=== PATIENT | male | born 1990 | race Caucasian/White ===

== ENCOUNTER → 2020-06-21 | Emergency (ER) | payer OTHER ==
[~2020-06-21] MED LIST: AMLODIPINE BESY10 M2 PO; ATORVASTATIN CA20 M1 PO; ELIQUIS5 MG PO; LOSARTAN POTAS100 M1 PO; METFORMIN500 M1 PO; METOPROLOL SUCC25 M2 PO; VENTOLIN H0.09 MG/A1 IH
== END ==
LOC: ED 00:10
DX: Z02.89 Encounter for other administrative examinations (principal)